=== PATIENT | female | born 1965 | race Caucasian/White ===

== ENCOUNTER 2018-03-11 23:52 | Emergency (ER) | payer OTHER ==
[2018-03-12 00:11] VITALS: BP 129/92; PULSE 72; TEMP 97.7; BMI 27.4
--- NOTE | 2018-03-12 00:53 | PDOC ---
History of Present Illness - General Chief Complaint: Head/Neck problem Stated Complaint: NECK SPASMS Time Seen by Provider: 03/11/18 23:55 - History of Present Illness Initial Comments: This 52-year-old woman with a history of anxiety, and currently undergoing diagnostic workup for possible retroperitoneal fibrosis, presents with intermittent discomfort of the neck muscles(left greater than right) for the last few days. Patient admits that she is anxious while awaiting results of PET scan performed during her diagnostic workup. She states that she felt tightness in the muscles of her neck and is concerned that this may be sign of CVA in the posterior circulation. She had some symptoms of lightheadedness/ vertigo several months ago and underwent neurologic and ophthalmologic workup which was apparently negative. The patient is also concerned because her mother of apparent CVA at age 49. The patient denies any vertigo or imbalance currently; she has had no difficulty with walking. She denies any facial or extremity weakness, difficulty with speech. Past History - Past Medical History Allergies/Adverse Reactions: Allergies Allergy/AdvReac Type Severity Reaction Status Date / Time No Known Allergies Allergy Unverified 03/11/18 23:53 Home Medications: Ambulatory Orders NK [No Known Home Medication] 03/11/18 COPD: No - Suicide/Smoking/Psychosocial Hx Smoking History: Never smoked Review of Systems - Review of Systems Able to Perform ROS?: Yes Comments:: 12 point review of systems is negative except for what is noted in the history of present illness *Physical Exam - Vital Signs Last Vital Signs Temp Pulse Resp BP Pulse Ox 97.7 F 72 18 129/92 99 03/11/18 23:53 03/11/18 23:53 03/11/18 23:53 03/11/18 23:53 03/11/18 23:53 - Physical Exam Comments: GENERAL: Adult female, anxious but in no acute distress, alert and oriented 3 HEAD: Normal with no signs of trauma. EYES: PERRLA, EOMI, sclera anicteric, conjunctiva clear. ENT: Ears normal, nares patent, oropharynx clear without exudates. Moist mucous membranes. NECK: Normal range of motion, supple without lymphadenopathy, JVD, or masses. Mildly tender left sternocleidomastoid muscle; no bruits evident LUNGS: Breath sounds equal, clear to auscultation bilaterally. No wheezes, and no crackles. HEART:Regular rate and rhythm, normal S1 and S2 without murmur, rub or gallop. ABDOMEN:.normal bowel sounds No guarding,tenderness or rebound.No masses No distention. EXTREMITIES: Normal range of motion, no edema. No clubbing or cyanosis. No erythema, or tenderness. NEUROLOGICAL: Cranial nerves II through XII grossly intact. Normal speech. [id number] intact bilaterally. Upper and lower extremity strength intact No gait abnormalities present MUSCULOSKELETAL: Back non-tender to palpation, no CVA tenderness SKIN: Warm, Dry, normal turgor, no rashes or lesions noted. Medical Decision Making - Medical Decision Making As noted above, this 52-year-old woman presents with symptoms consistent with mild spasm of paracervical and sternocleidomastoid muscles, left greater than right. Patient is admittedly anxious while she awaits results of workup for retroperitoneal fibrosis. She is specifically worried about CVA because her mother at age 49, reportedly from a CVA. Although she remotely had some symptoms consistent with vertigo/imbalance, she currently does not have any symptoms or signs of posterior circulation insufficiency. The patient had been previously prescribed Xanax for anxiety; she states that she has not any of the prescribed tablets but is wondering if she could take a Xanax when she gets home. She is reassured that there is no danger in using alprazolam currently. Patient should return to the emergency room if she has severe symptoms; otherwise, she should follow-up with her general doctor as scheduled within the next few days. *DC/Admit/Observation/Transfer Diagnosis at time of Disposition: Cervical muscle strain Qualifiers: Encounter type: initial encounter Qualified Code(s): S16.1XXA - Strain of muscle, fascia and tendon at neck level, initial encounter - Discharge Dispostion Disposition: HOME Condition at time of disposition: Stable - Referrals Referrals: Tristin Cota [Primary Care Provider] - - Patient Instructions Printed Discharge Instructions: Muscle Strain Additional Instructions: local warmth to neck muscles as needed Consider massage therapy of upper back/neck area as discussed Can use Xanax as previously prescribed for anxiety as needed Return to ER if you have severe pain or stiff neck Follow-up with your general doctor within the next 3-4 days - Post Discharge Activity
== END 2018-03-12 00:57 | disposition home or self-care (01) ==
LOC: FER 23:52
DX: S16.1XXA Strain of muscle, fascia and tendon at neck level, initial encounter (principal); X58.XXXA Exposure to other specified factors, initial encounter; Y93.89 Activity, other specified; Y92.9 Unspecified place or not applicable; F41.9 Anxiety disorder, unspecified
CPT/HCPCS: 99282-25